=== PATIENT | male | born 1970 | race African-American/Black ===

== ENCOUNTER → 2020-10-04 08:01 | Outpatient (CLI) | payer OTHER, SELFPAY ==
--- NOTE | 2020-10-04 | DI.RAD.S_ITS ---
PROCEDURE: XR SHOULDER RT MIN 2V INDICATIONS: Pain in right shoulder fingers numb 1,2,3, TECHNIQUE: 3 views of the shoulder were acquired. COMPARISON: None. FINDINGS: Bones: No acute fractures or dislocations. No suspicious bony lesions. Visualized ribs appear intact. Severe degenerative changes of the acromioclavicular and glenohumeral joints. Coracoclavicular and acromioclavicular intervals are maintained. Dense soft tissue calcifications overlying the superolateral right humeral head likely sequela of chronic calcific tendinopathy. Possible 1.3 cm calcified intra-articular loose body projecting near the medial aspect of the scapula on the scapular Y-view. Soft tissues: No suspicious soft tissue calcifications. IMPRESSION: 1. Right shoulder without acute fracture or dislocation. 2. Severe degenerative changes of the right acromioclavicular and glenohumeral joints. 3. Findings compatible with sequela of moderate calcific tendinopathy. 4. Possible 1.3 cm calcified intra-articular loose body. Dictated by: Fidel Sun M.D. on 10/04/2020 at 11:33 Approved by: Fidel Sun M.D. on 10/04/2020 at 12:12
== END ==
PROVIDERS: Referring Provider Physician Assistant; Visit Provider Physician Assistant
DX: M25.511 Pain in right shoulder (principal)
CPT/HCPCS: 73030

== ENCOUNTER 2023-11-21 21:15 | Emergency (ER) | payer OTHER, SELFPAY ==
[2023-11-21] VITALS (8 sets, daily range): BP systolic 157–172; BP diastolic 82–90; PULSE 84–107; RESP 5–18; TEMP 36.3; O2SAT 98–100; BMI 38.4
--- NOTE | 2023-11-21 21:34 | DI.RAD.S_ITS ---
PROCEDURE: XR CHEST 1V INDICATIONS: chest pain TECHNIQUE: One view of the chest was acquired. COMPARISON: None. FINDINGS: Surgical changes and devices: None. Lungs and pleura: Lungs are clear. No pleural effusions or pneumothorax. Mediastinum: Mediastinal contours appear normal. Heart size is normal. Bones and chest wall: No suspicious bony lesions. Overlying soft tissues appear unremarkable. IMPRESSION: No acute cardiopulmonary abnormality is seen. Dictated by: Geoffrey Dupree M.D. on 11/21/2023 at 22:34 Approved by: Geoffrey Dupree M.D. on 11/21/2023 at 22:34
[2023-11-21 21:41] LABS: Add Manual Diff / Slide Review NO; Basophils Absolute Auto 300 /uL (0-100); Basophils Percent Auto 2.8 % (0-2); Eosinophils Absolute Auto 400 /uL (0-450); Eosinophils Percent Auto 4.1 % (2-4); Hematocrit 33.9 % (41-53); Lymphocytes Absolute Auto 1400 /uL (1100-4500); Lymphocytes Percent Auto 15.8 % (25-40); Mean Corpuscular HGB Conc 32.6 % (30-36); Mean Corpuscular Hemoglobin 26.3 PG (26-34); Mean Corpuscular Volume 80.7 fL (80-100); Monocytes Absolute Auto 600 /uL (0-900); Monocytes Percent Auto 7.3 % (3-14); Neutrophils Absolute Auto 6200 /uL (1500-7000); Platelet Count 269 X10^3/uL (150-400); Red Cell Distribution Width 15.6 % (11.6-14.8); White Blood Cell Count 8.9 X10^3/uL (4.5-11.0)
[2023-11-21 21:47] LABS: Prothrombin Time 11.7 SECONDS (9.4-12.5)
[2023-11-21 21:49] LABS: PTT Partial Thromboplastin Tim 34 SECONDS (25.1-36.5)
[2023-11-21 21:52] LABS: Alanine Aminotransferase 11 IU/L (<50); Albumin 4.7 g/dL (3.5-5.0); Albumin Globulin Ratio 1.4 (1.0-2.8); Alkaline Phosphatase 82 U/L (38-126); Aspartate Aminotransferase 18 IU/L (17-59); Bilirubin Total 0.5 mg/dL (0.2-1.3); Blood Urea Nitrogen 91 mg/dL (9-20); Calcium 7.6 mg/dL (8.4-10.2); Carbon Dioxide 18 mmol/L (22-32); Chloride 104 mmol/L (98-107); Creatine Kinase 330 U/L (55-170); Globulin 3.4 g/dL (1.7-4.1); Glucose 132 mg/dL (70-100); HEMOLYSIS < 15 (0-50); Lipase 324 U/L (23-300); Magnesium 1.4 mg/dL (1.6-2.3); Potassium 4.5 mmol/L (3.4-5.1); Sodium 135 mmol/L (137-145); Total Protein 8.1 g/dL (6.3-8.2)
--- NOTE | 2023-11-21 21:55 | ED_ITS ---
HPI - Syncope General Chief Complaint: Syncope Stated Complaint: close to syncope/hx stage 5 kidney failure Time Seen by Provider: 11/21/23 21:36 Source: patient Mode of arrival: Ambulatory History of Present Illness HPI narrative: Patient is a 53-year-old male with chronic kidney disease, hypertension hyperlipidemia diabetes presenting today with near syncopal episode. He reports that he smokes some marijuana immediately after he got lightheaded sweaty diaphoretic and briefly passed out. He did not hit his head or lose consciousness. He has not on any anticoagulation medication. He has no numbness tingling or weakness. He was seen by the screw machine set up operator tool 3 days ago. He was reported that he is stage 5 kidney disease he is start dialysis so they are trying to get everything lined for that. In the meantime he was started on torsemide. They are changing their diet. He continues to drink significant amount of water. Reports significant improvement in lower extremity edema. No fever chills or other symptoms Related Data Home Medications Medication Instructions Recorded Confirmed ALBUTEROL SULFATE (Ventolin / ##0 01/26/10 Proventil) aspirin 81 mg tablet,delayed 81 mg PO QDAY ##0 03/26/16 release atorvastatin 20 mg tablet (Lipitor) 20 mg PO QDAY ##0 03/26/16 canagliflozin 300 mg tablet 300 mg QDAY ##0 03/26/16 (Invokana) hydrochlorothiazide 25 mg tablet 25 mg PO QDAY ##0 03/26/16 lisinopril 2.5 mg tablet mg PO QDAY ##0 03/26/16 metformin 500 mg tablet,extended 500 mg PO QDAY ##0 03/26/16 release 24 hr (Glucophage XR) amlodipine 10 mg tablet 10 mg PO DAILY 11/21/23 11/21/23 metoprolol succinate 25 mg 25 mg PO DAILY 11/21/23 11/21/23 tablet,extended release 24 hr torsemide 20 mg tablet 60 mg PO BID 11/21/23 11/21/23 Previous Rx's Medication Instructions Recorded oxycodone-acetaminophen 5 mg-325 1 - 2 tab PO Q4HP PRN #30 tabs 03/26/16 mg tablet (Percocet) Allergies Allergy/AdvReac Type Severity Reaction Status Date / Time No Known Drug Allergies Allergy Verified 11/21/23 21:27 Patient History Substance Use Type: marijuana Exam Initial Vital Signs Initial Vital Signs: Vital Signs Pulse Rate 107 H 11/21/23 21:18 Pulse Oximetry 98 11/21/23 21:18 GENERAL: Alert 53 well-appearing male and in [no acute] distress. HEENT: Head atraumatic,EOMI, pupils reactive, face symmetric, [moist] mucous membranes NECK: No vertebral tenderness or step-off CARDIOVASCULAR: Regular rate and rhythm without murmurs, rubs or gallops. RESPIRATORY: Breath sounds equal bilaterally, no wheezes rales or rhonchi. ABDOMEN: Soft, nontender. Normoactive bowel sounds all 4 quadrants. No guarding or rebound. EXTREMITIES: Normal range of motion, no clubbing+2 pitting edema lower extremity Neurovascularly intact NEUROLOGICAL: Alert and oriented x4.Normal gait and speech. Cranial nerves II through XII grossly intact. [ SKIN: Warm, dry, no laceration, no petechiae, no rashes or lesions. Scores NIH Stroke Scale Level of Conciousness: Alert, keenly responsive Ask month/age: Answers both questions correctly. Open/close eyes, close hand: Performs both tasks correctly Best gaze horizontal: Normal Visual mendiola: No visual loss Facial palsy: Normal symetrical movement Left arm drift: No drift for full 10 sec Right arm drift: No drift for full 10 sec Left leg drift: No drift for full 5 sec Right leg drift: No drift for full 5 sec Limb ataxia: Absent Sensory on face/arms/legs: Normal, no sensory loss Best language: No aphasia, normal Dysarthria: Normal Extinction or inattention: No abnormality Total NIH Stroke scale score: 0 Course Orders Ordered: ED Orders 11/21/23 21:30 Complete Blood Count AUTO DIFF Stat Comprehensive Metabolic Panel Stat Lipase Stat Magnesium Stat PTT Partial Thromboplastin Jose Stat Prothrombin Time INR Stat Troponin & CK Cardiac Panel Stat 11/21/23 21:34 XR chest 1V Stat EKG-12 Lead Stat Discontinued Medications Aspirin (Aspirin 81 Mg Chew Tab) 324 mg PO NOW ONE Stop: 11/21/23 21:35 Last Admin: 11/21/23 22:04 Dose: 324 mg Documented By: CINDI Sodium Chloride (Sodium Chloride 0.9% Flush) 10 ml IV BID QUITA Sodium Chloride (Sodium Chloride 0.9% Flush) 10 ml IV PRN PRN PRN Reason: Flush Vital Signs Vital signs: Vital Signs - 8 hr 11/21/23 21:18 11/21/23 21:19 11/21/23 21:19 Temperature Pulse Rate 107 H 104 H Respiratory Rate Blood Pressure 172/90 H Pulse Oximetry 98 99 Oxygen Delivery Method 11/21/23 21:27 11/21/23 21:30 11/21/23 21:30 Temperature 97.3 F L Pulse Rate 101 H 97 H Respiratory Rate 18 5 L Blood Pressure 172/90 H 162/90 H Pulse Oximetry 99 100 Oxygen Delivery Method Room Air 11/21/23 22:00 11/21/23 22:00 11/21/23 22:30 Temperature Pulse Rate 87 84 Respiratory Rate 8 L 8 L Blood Pressure 157/82 H Pulse Oximetry 100 99 Oxygen Delivery Method 11/21/23 23:00 11/21/23 23:00 11/21/23 23:20 Temperature Pulse Rate 86 Respiratory Rate 10 L Blood Pressure 167/87 H 166/83 H Pulse Oximetry 99 Oxygen Delivery Method Room Air MDM - Syncope Lab Data 11/21/23 21:30 11/21/23 21:30 Labs: Lab Results 11/21/23 Range/Units 21:30 WBC 8.9 (4.5-11.0) X10^3/uL RBC 4.20 L (4.5-5.9) X10^6/uL Hgb 11.0 L (13.5-17.5) g/dL Hct 33.9 L (41-53) % MCV 80.7 (80-100) fL MCH 26.3 (26-34) PG MCHC 32.6 (30-36) % RDW 15.6 H (11.6-14.8) % Plt Count 269 (150-400) X10^3/uL Neut % (Auto) 70.0 (50-75) % Lymph % (Auto) 15.8 L (25-40) % [place] % (Auto) 7.3 (3-14) % Eos % (Auto) 4.1 H (2-4) % Baso % (Auto) 2.8 H (0-2) % Neut # (Auto) 6200 (9609-1804) /uL Lymph # (Auto) 1400 (4773-9485) /uL [place] # (Auto) 600 (0-900) /uL Eos # (Auto) 400 (0-450) /uL Baso # (Auto) 300 H (0-100) /uL PT 11.7 (9.4-12.5) SECONDS INR 1.0 (0.9-1.3) APTT 34 (25.1-36.5) SECONDS Sodium 135 L (137-145) mmol/L Potassium 4.5 (3.4-5.1) mmol/L Chloride 104 (98-107) mmol/L Carbon Dioxide 18 L (22-32) mmol/L BUN 91 H (9-20) mg/dL Creatinine 7.46 H* (0.66-1.25) mg/dL Estimated GFR 8 L (>60) mL/min BUN/Creatinine Ratio 12.2 (6-22) Glucose 132 H (70-100) mg/dL Calcium 7.6 L (8.4-10.2) mg/dL Magnesium 1.4 L (1.6-2.3) mg/dL Total Bilirubin 0.5 (0.2-1.3) mg/dL AST 18 (17-59) IU/L ALT 11 (<50) IU/L Alkaline Phosphatase 82 (38-126) U/L Total Creatine Kinase 330 H (55-170) U/L Troponin I < 0.012 (0.01-0.034) ng/mL Total Protein 8.1 (6.3-8.2) g/dL Albumin 4.7 (3.5-5.0) g/dL Globulin 3.4 (1.7-4.1) g/dL Albumin/Globulin Ratio 1.4 (1.0-2.8) Lipase 324 H (23-300) U/L Imaging Data Chest x-ray: Radiologist's Impression: PROCEDURE: XR CHEST 1V INDICATIONS: chest pain TECHNIQUE: One view of the chest was acquired. COMPARISON: None. FINDINGS: Surgical changes and devices: None. Lungs and pleura: Lungs are clear. No pleural effusions or pneumothorax. Mediastinum: Mediastinal contours appear normal. Heart size is normal. Bones and chest wall: No suspicious bony lesions. Overlying soft tissues appear unremarkable. IMPRESSION: No acute cardiopulmonary abnormality is seen. Dictated by: Geoffrey Dupree M.D. on 11/21/2023 at 22:34 Approved by: Geoffrey Dupree M.D. on 11/21/2023 at 22:34 ECG Data Interpretation: Sinus rhythm rate 93 NE interval 142 QRS V2 QTC [address] changes no priors to compare MDM Narrative Medical decision making narrative: Patient is a 53-year-old male with significant comorbidities diabetes hypertension hyperlipidemia presenting today with a near-syncopal episode. The episode happened immediately after smoking marijuana. I suspect this is a vasovagal reaction. He has no evidence of trauma or injury. NIH stroke scale 0. Blood work has been reviewed potassium 4.5, creatinine 7.46 BUN 91 sodium 135 Patient has no prior blood work care. thinks that his creatinine was about 6 a couple of days ago but is really unclear suspect that this is his chronic ongoing chronic kidney disease he is already being followed by Nephrology. He was recently started torsemide which may account for the possible elevation of creatinine. He has no neurologic deficits I do not see any need for head CT not on any sort of anticoagulation. He is overall feeling significantly better. At this time I recommend outpatient follow-up. Chronic kidney disease is chronic unlikely the reason why he passed out today. Discussion with family and patient at bedside Discharge Plan Departure Patient Disposition: Home Clinical Impression: Vasovagal syncope, Chronic kidney disease Instructions: DI for Syncope in Adults (Fainting) Activity Restrictions/Additional Instructions: *You have been diagnosed with chronic kidney disease *What to do: At this time please call your screw machine set up operator tool on Thursday to schedule follow-up appointment. Unclear if you medication contributed to this. *Continue to take medications as directed *Follow up with your primary care provider in 2-3 days or call [phone] *Return to ER if you should have recurrent episode of passing out chest pain confusion or any new, worsening or concerning symptoms Prescriptions: No Action ALBUTEROL SULFATE (Ventolin / Proventil) Qty: 0 lisinopril 2.5 MG tablet PO QDAY Qty: 0 hydrochlorothiazide 25 MG tablet 25 mg PO QDAY Qty: 0 atorvastatin [Lipitor] 20 MG tablet 20 mg PO QDAY Qty: 0 canagliflozin [Invokana] 300 MG tablet 300 mg QDAY Qty: 0 aspirin 81 MG tablet,delayed release (DR/EC) 81 mg PO QDAY Qty: 0 metformin [Glucophage XR] 500 MG tablet extended release 24 hr 500 mg PO QDAY Qty: 0 oxycodone-acetaminophen [Percocet] 5 MG/325 MG tablet 1 - 2 tab PO Q4HP PRNQty: 30 0RF torsemide 20 mg tablet 60 mg PO BID amlodipine 10 mg tablet 10 mg PO DAILY metoprolol succinate 25 mg tablet extended release 24 hr 25 mg PO DAILY Stand Alone Forms: Patient Portal/API
[2023-11-21 22:03] LABS: Troponin I < 0.012 ng/mL (0.01-0.034)
[2023-11-21] MEDS: ASPIRIN 81 MG CHEW TAB 324 MG PO (22:04)
[2023-11-21 22:05] LABS: BUN Creatinine Ratio 12.2 (6-22); Estimated Glomerular Filt Rate 8 mL/min (>60)
== END 2023-11-21 23:20 | disposition home or self-care (01) ==
PROVIDERS: Emergency Provider Emergency Medicine
DX: R55 Syncope and collapse (principal); I12.0 Hypertensive chronic kidney disease with stage 5 chronic kidney disease or end stage renal disease; E11.22 Type 2 diabetes mellitus with diabetic chronic kidney disease; N18.5 Chronic kidney disease, stage 5; Z79.84 Long term (current) use of oral hypoglycemic drugs
CPT/HCPCS: 36415; 71045; 80053; 82550; 83690; 83735; 84484; 85025; 85610; 85730; 93005; 99284